=== PATIENT | male | born 1990 | race Caucasian/White ===

== ENCOUNTER 2023-06-11 10:55 | Outpatient (CLI) | payer OTHER, SELFPAY ==
--- NOTE | ~2023-06-11 | XR_ITS ---
EXAMINATION: XR cervical spine 4-5V DATE: 06/11/2023 11:08 INDICATION: Right arm weakness and tingling. TECHNIQUE: 4 views of cervical spine were obtained. COMPARISON: None. FINDINGS: There is 8 degrees levocurvature of cervical spine. There is kyphosis of cervical spine. Th ere is 2 mm retrolisthesis of C5 on C6. Vertebral body heights are normal. There is moderately decrea sed disc height at C5-C6. At C5-C6, there is severe bilateral uncovertebral joint osteoarthritis. The facet joints are unremarkable. There is mild central canal stenosis at C5-C6. No prevertebral soft t issue swelling. IMPRESSION: 1. Moderate spondylosis at C5-C6. Reviewed, dictated and finalized at location A.
== END 2023-06-11 10:56 ==
LOC: GOSHIMG 10:56
PROVIDERS: PCP Family Medicine; Visit Provider Family Medicine
DX: R20.0 Anesthesia of skin (principal); M47.892 Other spondylosis, cervical region
CPT/HCPCS: 72050

== ENCOUNTER 2023-08-27 09:02 | Outpatient (CLI) | payer OTHER, SELFPAY ==
--- NOTE | 2023-08-27 11:15 | NEURO_ITS ---
Impression: # Complains of numbness of hands with overhead abduction of upper extremities. Not diabetic. # Normal Nerve Conduction Study,including Fwaves. # Normal needle exam of proximal as well as distal muscles. # Clinical correlation recommended.Possibility of thoracic outlet syndrome cannot be ruled out on the basis of normal emg and ncs. Nerve Conduction Studies Anti Sensory Summary Table Stim Site NR Peak (ms) P-T Amp (?V) Site1 Site2 Delta-P (ms) Dist (cm) Ayaz (m/s) Left Median Anti Sensory (2-3nd Digit) Wrist 3.0 88.6 Wrist 2-3nd Digit 3.0 14.0 47 Wrist 3.0 75.2 Wrist 2-3nd Digit 3.0 14.0 47 Right Median Anti Sensory (2-3nd Digit) Wrist 3.3 55.6 Wrist 2-3nd Digit 3.3 14.0 42 Wrist 3.5 67.9 Wrist 2-3nd Digit 3.3 14.0 42 Left Radial Anti Sensory (Base 1st Digit) Wrist 2.1 31.6 Wrist Base 1st Digit 2.1 0.0 Right Radial Anti Sensory (Base 1st Digit) Wrist 2.7 9.8 Wrist Base 1st Digit 2.7 0.0 Left Ulnar Anti Sensory (5th Digit) Wrist 2.7 59.8 Wrist 5th Digit 2.7 14.0 52 Right Ulnar Anti Sensory (5th Digit) Wrist 3.0 58.1 Wrist 5th Digit 3.0 14.0 47 Motor Summary Table Stim Site NR Onset (ms) O-P Amp (mV) Site1 Site2 Delta-0 (ms) Dist (cm) Ayaz (m/s) Left Median Motor (Abd Poll Brev) Wrist 3.4 3.6 Elbow Wrist 5.7 33.0 58 Elbow 9.1 6.3 Right Median Motor (Abd Poll Brev) Wrist 3.2 7.8 Elbow Wrist 5.7 33.0 58 Elbow 8.9 6.2 Left Ulnar Motor (Abd Dig Minimi) Wrist 2.9 5.8 A Elbow Wrist 5.7 34.0 60 A Elbow 8.6 5.0 Right Ulnar Motor (Abd Dig Minimi) Wrist 3.0 4.9 A Elbow Wrist 5.5 33.0 60 A Elbow 8.5 5.1 F Wave Studies NR F-Lat (ms) L-R F-Lat (ms) Left Median (Mrkrs) (Abd Poll Brev) 29.51 0.43 Right Median (Mrkrs) (Abd Poll Brev) 29.94 0.43 Left Ulnar (Mrkrs) (Abd Dig Min) 29.85 0.56 Right Ulnar (Mrkrs) (Abd Dig Min) 30.41 0.56 EMG Side Muscle Nerve Root Ins Act Fibs Amp Dur Recrt Comment Right 1stDorInt Ulnar C8-T1 Nml Nml Nml Nml Nml Right Ext Indicis Radial (Post Int) C7-8 Nml Nml Nml Nml Nml Right Ext Digitorum Radial (Post Int) C7-8 Nml Nml Nml Nml Nml Right BrachioRad Radial C5-6 Nml Nml Nml Nml Nml Right PronatorTeres Median C6-7 Nml Nml Nml Nml Nml Right Abd Poll Brev Median C8-T1 Nml Nml Nml Nml Nml Right ABD Dig Min Ulnar C8-T1 Nml Nml Nml Nml Nml Left 1stDorInt Ulnar C8-T1 Nml Nml Nml Nml Nml Left Ext Indicis Radial (Post Int) C7-8 Nml Nml Nml Nml Nml Left Ext Digitorum Radial (Post Int) C7-8 Nml Nml Nml Nml Nml Left BrachioRad Radial C5-6 Nml Nml Nml Nml Nml Left PronatorTeres Median C6-7 Nml Nml Nml Nml Nml Left Abd Poll Brev Median C8-T1 Nml Nml Nml Nml Nml Left ABD Dig Min Ulnar C8-T1 Nml Nml Nml Nml Nml Right Biceps Musculocut C5-6 Nml Nml Nml Nml Nml Right Triceps Radial C6-7-8 Nml Nml Nml Nml Nml Right Deltoid Axillary C5-6 Nml Nml Nml Nml Nml Left Biceps Musculocut C5-6 Nml Nml Nml Nml Nml Left Triceps Radial C6-7-8 Nml Nml Nml Nml Nml Left Deltoid Axillary C5-6 Nml Nml Nml Nml Nml MTDD
== END 2023-08-27 09:03 | disposition home or self-care (01) ==
LOC: ANHNEURO 09:03
PROVIDERS: PCP Family Medicine; Visit Provider Family Medicine
DX: G54.0 Brachial plexus disorders (principal)
CPT/HCPCS: 95886; 95911

== ENCOUNTER 2023-09-08 09:01 | Outpatient (CLI) | payer OTHER, SELFPAY ==
--- NOTE | ~2023-09-08 | MR_ITS ---
EXAMINATION: MR orbits face neck wo con DATE: 09/08/2023 10:57 INDICATION: Brachial plexus disorder with concern for thoracic outlet syndrome including symptoms wit h bilateral arm tingling, weakness and loss of pulses with the arms raised about the shoulder. TECHNIQUE: Magnetic resonance imaging (MRI) of the bilateral brachial plexus at the neck and upper ch est was performed without intravenous contrast. Sequences included large [id number] coronal fluid sensitive FSE STIR, coronal T2-weighted FS FSE and axial T1-weighted FSE, small [id number] of the cervical spine with axial and sagittal T2-weighted FSE, oblique coronal and oblique sagittal of the left and right brachial plexus with T1-weighted FSE and T2-weighted FS FSE. COMPARISON: None. FINDINGS: 2 mm retrolisthesis C5 on C6 with moderate associated disc height loss and mild to moderate left-side d and moderate right-sided uncovertebral osteoarthritis. Associated posterior disc osteophyte complex at this level contributes to mild central canal stenosis measuring 8 mm AP in the mid sagittal plane and which indents the ventral surface of the cord. Additional mild disc height loss with annular fis sure and small disc bulges at C4-C5 resulting and a severe mild central canal stenosis with flattenin g of the left ventral surface of the cord. There is multilevel mild bilateral cervical facet osteoart hritis which along with the previous noted uncovertebral osteoarthritis contributes to mild neural fo raminal stenosis on the left at C4-C5 and mild to moderate bilateral neural foraminal stenosis at C5- C6. No cervical ribs, abnormal masses or fluid collection along the course of the left or right brach ial plexus both of which appear normal. No evident compression of the patent bilateral subclavian art eries and veins with the arms in the neutral position. Superior mediastinum is unremarkable. IMPRESSION: 1. Mild to moderate cervical spondylosis most prominent at C5-C6 there is mild central canal and mild to moderate bilateral neural foraminal stenosis. 2. Normal appearance to the left and right brachial plexus with no evident impinging lesions. Reviewed, dictated and finalized at location A. IMPRESSION: 1. Mild to moderate cervical spondylosis most prominent at C5-C6 there is mild central canal and mild to moderate bilateral neural foraminal stenosis. 2. Normal appearance to the left and right brachial plexus with no evident impi nging lesions.
== END 2023-09-08 09:02 ==
PROVIDERS: PCP Family Medicine; Visit Provider Family Medicine
DX: G54.0 Brachial plexus disorders (principal)
CPT/HCPCS: 70540

== ENCOUNTER 2024-01-13 09:37 | Outpatient (CLI) | payer OTHER, SELFPAY ==
--- NOTE | ~2024-01-13 | XR_ITS ---
Right Shoulder Technique: AP and scapular Y views were obtained. Clinical History: Pain Findings: No fracture or dislocation is seen. Osseous alignment is anatomic. The glenohumeral and acr omioclavicular joint spaces are preserved. Soft tissues are unremarkable. Impression: Unremarkable right shoulder radiographs. Reviewed, dictated and finalized at [facility]. Impression: Unremarkable right shoulder radiographs.
--- NOTE | ~2024-01-13 | XR_ITS ---
Cervical Spine: AP, lateral, open-mouth views Clinical History: Pain Findings: The normal lordotic curve is maintained. There is minimal grade 1 retrolisthesis of C5 over C6. There is mild degenerative disc change at C5-C6. No instability evident on flexion or extension. Minimal facet joint degenerative change present.. Pre-vertebral soft tissues are unremarkable. Impression: Grade 1 retrolisthesis of C5 over C6. No instability evident. Minimal degenerative spondylosis otherwise. Reviewed, dictated and finalized at [facility]. Impression: Grade 1 retrolisthesis of C5 over C6. No instability evident. Minimal degenerative spondylosis otherwise.
--- NOTE | ~2024-01-13 | XR_ITS ---
Left Shoulder Technique: AP and scapular Y views were obtained. Clinical History: Pain Findings: No fracture or dislocation is seen. Osseous alignment is anatomic. The glenohumeral and acr omioclavicular joint spaces are preserved. Soft tissues are unremarkable. Impression: Unremarkable left shoulder radiographs. Reviewed, dictated and finalized at [facility]. Impression: Unremarkable left shoulder radiographs.
== END 2024-01-13 09:38 | disposition home or self-care (01) ==
LOC: GOSHIMG 09:39
PROVIDERS: PCP Neurological Surgery; Visit Provider Neurological Surgery
DX: M79.601 Pain in right arm (principal); M79.602 Pain in left arm; M47.892 Other spondylosis, cervical region
CPT/HCPCS: 72050; 73030

== ENCOUNTER 2024-08-03 10:25 | Outpatient (CLI) | payer OTHER, SELFPAY ==
--- OUTSIDE RECORDS SUMMARY | 2024-08-03 11:20 | XMS_ITS | Clinical Summary ---
Author Organization [facility] Address [address] [place] [id number] Care Team Providers Care Soil Technologist Name Role Phone Unavailable Primary Care Provider Unavailabl e Social History Tobacco Use Types Packs/Day Years Used Date Smoking Tobacco: Never Assessed Sex and Gender Information Value Date Recorded Sex Assigned at Not on file Legal Sex Male 4:44 PM CDT Gender Identity Not on file Sexual Orientation Not on file Plan of Treatment Health Maintenance Due Date Last Done Comments Annual Physical 1993 Hepatitis C 2008 DTaP, Tdap and Td Vaccines ( 1 - Tdap) 2009 Hepatitis B Vaccines (1 of 3 - 19+ 3-dose series) 2009 COVID-19 Vaccine (2023-2 5 season) 2023 HPV Vaccines Aged Out No longer eligi ble based on patient's age to complete this topic Meningococcal B Vaccine Aged Out No l onger eligible based on patient's age to complete this topic Meningococcal Vaccine Aged Out No mayi naomi eligible based on patient's age to complete this topic Pneumococcal Vaccine: Pediat rics (0 to 5 Years) and At-Risk Patients (6 to 49 Years) Aged Out No longer eligible b ased on patient's age to complete this topic RSV Immunizations Under 20 Months Aged Out No longer eligible based on patient's age to complete this topic
[2024-08-03 12:43] LABS: Basophils Absolute Auto 0.1 K/mm3 (0.0-0.1); Eosinophils Absolute Auto 0.3 K/mm3 (0-0.3); Eosinophils Percent Auto 3.7 % (0-4.4); Hematocrit 45.4 % (42.0-52.0); Hemoglobin 14.8 g/dL (14.0-18.0); Immature Granulocyte Absolute 0.02 K/mm3 (0.00-0.031); Immature Granulocyte Percent A 0.3 % (0-0.5); Lymphocytes Absolute Auto 1.56 K/mm3 (0.9-3.2); Lymphocytes Percent Auto 21.2 % (18.3-44.2); Mean Corpuscular HGB Conc 32.6 g/dl (32-36); Mean Corpuscular Volume 92.1 fl (80-100); Mean Platelet Volume 11.5 fl (7.4-10.4); Monocytes Absolute Auto 0.7 K/mm3 (0.1-0.6); Monocytes Percent Auto 9.4 % (2.6-8.5); Neutrophils Absolute Auto 4.8 K/mm3 (1.3-6.7); Neutrophils Percent Auto 64.4 % (45.5-73.1); Platelet Count Result 194 k/mm3 (150-375); Red Blood Count 4.93 M/mm3 (4.6-6.20); Red Cell Distribution Width 12.6 % (11.5-14.5); White Blood Count 7.4 K/mm3 (4.5-10.0)
[2024-08-03 13:15] LABS: Alanine Aminotransferase 23 U/L (6-50); Albumin Level 4.3 g/dL (3.5-5.1); Alkaline Phosphatase 79 U/L (38-126); Anion Gap 7 mmol/L (4-12); Aspartate Amino Transferase 51 U/L (17-59); Bilirubin,Total 0.5 mg/dL (0.2-1.3); Blood Urea Nitrogen 15 mg/dL (9-20); Calcium 8.9 mg/dL (8.4-10.2); Carbon Dioxide 30 mmol/L (22-30); Chloride 101 mmol/L (98-107); Cholesterol 162 mg/dL (0-200); Estimated Glomerular Filt Rate > 60; Glucose 92 mg/dL (65-110); HDL Direct 44 mg/dL; Potassium 4.2 mmol/L (3.4-5.0); Sodium 138 mmol/L (137-145); Triglycerides 105 mg/dL (<150)
[2024-08-03 13:26] LABS: LDL Cholesterol Direct 68 mg/dL
== END 2024-08-03 10:26 | disposition home or self-care (01) ==
LOC: ANHGOSHLAB 10:26
PROVIDERS: PCP Family Medicine; Visit Provider Family Medicine
DX: Z00.00 Encounter for general adult medical examination without abnormal findings (principal)
CPT/HCPCS: 36415; 80053; 80061; 85025